=== PATIENT | female | born 1955 | race Caucasian/White ===

== ENCOUNTER 2017-05-04 09:08 | Day surgery (SDC) | payer OTHER ==
[~2017-05-04] VITALS: Ht 165.1 cm; Wt 140.6 kg
--- NOTE | ~2017-05-04 | EGD ---
EGD REPORT [facility] [address] [address] NAME: CATRINA GIBBS : 53 STATUS : REG [facility] PAT#: [id number] AGE: 61 ADM/REG DATE : 05/04/17 MR#: [id number] REPORT SERV DATE: 05/04/17 DICTATED BY: PHILIPPE HAMILTON DATE: 05/04/17 REPORT STATUS : Draft [facility]ANS[facility]IBED [facility]: [facility] DATE: 05/04/17 End[facility] Center Patient Name: Catrina Gibbs Date of : 1955 Attending MD: PHILIPPE HAMILTON MD Procedure Date No Time: 05/04/2017 Procedure: Colonoscopy Indications: Screening for colorectal malignant neoplasm, Last colonoscopy: 2005 Referring MD: GAYLE GUADARRAMA Medicines: See the Anesthesia note for documentation of the administered medications Complications: No immediate complications. Procedure: Pre-Anesthesia Assessment: - ASA Grade Assessment: III - A patient with severe systemic disease. After I obtained informed consent, the scope was passed under direct vision. Throughout the procedure, the patient's blood pressure, pulse, and oxygen saturations were monitored continuously. The [id number] was introduced through the anus and advanced to the cecum, identified by appendiceal orifice and ileocecal valve. The colonoscopy was performed without difficulty. The patient tolerated the procedure well. The quality of the bowel preparation was adequate. Findings: The perianal and digital rectal examinations were normal. Internal hemorrhoids were found during retroflexion and were small. Two sessile polyps were found in the ascending colon. The polyps were 8 mm in size. These polyps were removed with a cold snare. Resection and retrieval were complete. Impression: - Internal hemorrhoids. - Two 8 mm polyps in the ascending colon. Resected and retrieved. Recommendation: - Patient has a contact number available for emergencies. The signs and symptoms of potential delayed complications were discussed with the patient. Return to normal activities tomorrow. Written discharge instructions were provided to the patient. - Regular diet. - Continue present medications. - Repeat colonoscopy for surveillance based on pathology EGD REPORT [address] [address] NAME: CATRINA GIBBS : [birth year] STATUS : REG [facility]#: [id number] AGE: 61 ADM/REG DATE : 05/04/17 MR#: [id number] REPORT SERV DATE: 05/04/17 DICTATED BY: PHILIPPE HAMILTON DATE: 05/04/17 REPORT STATUS : Draft TRANSCRIBED BY: [employer] DATE: 05/04/17 results. - FOR YOUR BIOPSY RESULTS: Please go to [email or web address] and register to receive your results via the portal. Your biopsy results will be posted there in about 7 to 10 days. IF you do not see result in 10 days, call office. Procedure Code(s): --- Professional --- 30655, Colonoscopy, flexible, proximal to splenic flexure; with removal of tumor(s), polyp(s), or other lesion(s) by snare technique Diagnosis Code(s): --- Professional --- K64.8, Other hemorrhoids D12.2, Benign neoplasm of ascending colon Z12.11, Encounter for screening for malignant neoplasm of colon CPT copyright 2013 [employer]. All rights reserved. The codes documented in this report are preliminary and upon medical staff coordinator review may be revised to meet current compliance requirements. Philippe Hamilton MD PHILIPPE HAMILTON MD 05/04/2017 10:15 AM This report has been signed electronically. Number of Addenda: 0 Note Initiated On: 05/04/2017 9:24 AM Scope Withdrawal Time 0 hours 10 minutes 20 seconds [id number] [place] [id number]
--- NOTE | ~2017-05-04 | EGD ---
EGD REPORT [facility] [address] [address] NAME: CATRINA GIBBS : 53 STATUS : [facility] PAT#: [id number] AGE: 61 ADM/REG DATE : 05/04/17 MR#: [id number] REPORT SERV DATE: 05/04/17 DICTATED BY: PHILIPPE HAMILTON DATE: 05/04/17 REPORT STATUS : Draft [facility]ANS[facility]IBED [facility]: [facility] DATE: 05/04/17 Endoscopy Center Patient Name: Catrina Gibbs Date of : 1955 Attending MD: PHILIPPE HAMILTON MD Procedure Date No Time: 05/04/2017 Procedure: Colonoscopy Indications: Screening for colorectal malignant neoplasm, Last colonoscopy: 2005 Referring MD: GAYLE GUADARRAMA Medicines: See the Anesthesia note for documentation of the administered medications Complications: No immediate complications. Procedure: Pre-Anesthesia Assessment: - ASA Grade Assessment: III - A patient with severe systemic disease. After I obtained informed consent, the scope was passed under direct vision. Throughout the procedure, the patient's blood pressure, pulse, and oxygen saturations were monitored continuously. The [id number] was introduced through the anus and advanced to the cecum, identified by appendiceal orifice and ileocecal valve. The colonoscopy was performed without difficulty. The patient tolerated the procedure well. The quality of the bowel preparation was adequate. Findings: The perianal and digital rectal examinations were normal. Internal hemorrhoids were found during retroflexion and were small. Two sessile polyps were found in the ascending colon. The polyps were 8 mm in size. These polyps were removed with a cold snare. Resection and retrieval were complete. Impression: - Internal hemorrhoids. - Two 8 mm polyps in the ascending colon. Resected and retrieved. Recommendation: - Patient has a contact number available for emergencies. The signs and symptoms of potential delayed complications were discussed with the patient. Return to normal activities tomorrow. Written discharge instructions were provided to the patient. - Regular diet. - Continue present medications. - Repeat colonoscopy for surveillance based on pathology EGD REPORT [address] [address] NAME: CATRINA GIBBS : [birth year] STATUS : REG [facility]#: [id number] AGE: 61 ADM/REG DATE : 05/04/17 MR#: [id number] REPORT SERV DATE: 05/04/17 DICTATED BY: PHILIPPE HAMILTON DATE: 05/04/17 REPORT STATUS : Draft TRANSCRIBED BY: [employer] DATE: 05/04/17 results. - FOR YOUR BIOPSY RESULTS: Please go to [email or web address] and register to receive your results via the portal. Your biopsy results will be posted there in about 7 to 10 days. IF you do not see result in 10 days, call office. Procedure Code(s): --- Professional --- 46491, Colonoscopy, flexible, proximal to splenic flexure; with removal of tumor(s), polyp(s), or other lesion(s) by snare technique Diagnosis Code(s): --- Professional --- K64.8, Other hemorrhoids D12.2, Benign neoplasm of ascending colon Z12.11, Encounter for screening for malignant neoplasm of colon CPT copyright 2013 [employer]. All rights reserved. The codes documented in this report are preliminary and upon utility bill collection clerk review may be revised to meet current compliance requirements. Philippe Hamilton MD PHILIPPE HAMILTON MD 05/04/2017 10:15 AM This report has been signed electronically. Number of Addenda: 0 Note Initiated On: 05/04/2017 9:24 AM Scope Withdrawal Time 0 hours 10 minutes 20 seconds [id number] [place] [id number]
--- NOTE | ~2017-05-04 | EGD ---
EGD REPORT [facility] [address] [address] NAME: CATRINA GIBBS : [birth year] STATUS : [facility]#: [id number] AGE: 61 ADM/REG DATE : 05/04/17 MR#: [id number] REPORT SERV DATE: 05/10/17 DICTATED BY: PHILIPPE HAMILTON DATE: 05/10/17 REPORT STATUS : Draft [facility] DATE: 05/10/17 Endoscopy Center Patient Name: Catrina Gibbs Date of : 1955 Attending MD: PHILIPPE HAMILTON MD Procedure Date No Time: 05/04/2017 Procedure: Colonoscopy Indications: Screening for colorectal malignant neoplasm, Last colonoscopy: 2005 Referring MD: GAYLE GUADARRAMA Medicines: See the Anesthesia note for documentation of the administered medications Complications: No immediate complications. Procedure: Pre-Anesthesia Assessment: - ASA Grade Assessment: III - A patient with severe systemic disease. After I obtained informed consent, the scope was passed under direct vision. Throughout the procedure, the patient's blood pressure, pulse, and oxygen saturations were monitored continuously. The [id number] was introduced through the anus and advanced to the cecum, identified by appendiceal orifice and ileocecal valve. The colonoscopy was performed without difficulty. The patient tolerated the procedure well. The quality of the bowel preparation was adequate. Findings: The perianal and digital rectal examinations were normal. Internal hemorrhoids were found during retroflexion and were small. Two sessile polyps were found in the ascending colon. The polyps were 8 mm in size. These polyps were removed with a cold snare. Resection and retrieval were complete. Impression: - Internal hemorrhoids. - Two 8 mm polyps in the ascending colon. Resected and retrieved. Recommendation: - Patient has a contact number available for emergencies. The signs and symptoms of potential delayed complications were discussed with the patient. Return to normal activities tomorrow. Written discharge instructions were provided to the patient. - Regular diet. - Continue present medications. - Repeat colonoscopy for surveillance based on pathology EGD REPORT [address] [address] NAME: CATRINA GIBBS : [birth year] STATUS : [facility]#: [id number] AGE: 61 ADM/REG DATE : 05/04/17 MR#: [id number] REPORT SERV DATE: 05/10/17 DICTATED BY: PHILIPPE HAMILTON DATE: 05/10/17 REPORT STATUS : Draft TRANSCRIBED BY: [employer] DATE: 05/10/17 results. - FOR YOUR BIOPSY RESULTS: Please go to [email or web address] and register to receive your results via the portal. Your biopsy results will be posted there in about 7 to 10 days. IF you do not see result in 10 days, call office. Procedure Code(s): --- Professional --- 69021, Colonoscopy, flexible, proximal to splenic flexure; with removal of tumor(s), polyp(s), or other lesion(s) by snare technique Diagnosis Code(s): --- Professional --- K64.8, Other hemorrhoids D12.2, Benign neoplasm of ascending colon Z12.11, Encounter for screening for malignant neoplasm of colon CPT copyright 2013 [employer]. All rights reserved. The codes documented in this report are preliminary and upon nuclear physician review may be revised to meet current compliance requirements. Philippe Hamilton MD PHILIPPE HAMILTON MD 05/04/2017 10:15 AM This report has been signed electronically. Number of Addenda: 0 Note Initiated On: 05/04/2017 9:24 AM Scope Withdrawal Time 0 hours 10 minutes 20 seconds [id number] [place] [id number]
--- NOTE | ~2017-05-04 | EGD ---
EGD REPORT [facility] [address] [address] NAME: CATRINA GIBBS : 53 STATUS : [facility]#: [id number] AGE: 61 ADM/REG DATE : 05/04/17 MR#: [id number] REPORT SERV DATE: 05/11/17 DICTATED BY: PHILIPPE HAMILTON DATE: 05/11/17 REPORT STATUS : Draft [facility] DATE: 05/11/17 Endoscopy Center Patient Name: Catirna Gibbs Date of : 1955 Attending MD: PHILIPPE HAMILTON MD Procedure Date No Time: 05/04/2017 Procedure: Colonoscopy Indications: Screening for colorectal malignant neoplasm, Last colonoscopy: 2005 Referring MD: GAYLE GUADARRAMA Medicines: See the Anesthesia note for documentation of the administered medications Complications: No immediate complications. Procedure: Pre-Anesthesia Assessment: - ASA Grade Assessment: III - A patient with severe systemic disease. After I obtained informed consent, the scope was passed under direct vision. Throughout the procedure, the patient's blood pressure, pulse, and oxygen saturations were monitored continuously. The [id number] was introduced through the anus and advanced to the cecum, identified by appendiceal orifice and ileocecal valve. The colonoscopy was performed without difficulty. The patient tolerated the procedure well. The quality of the bowel preparation was adequate. Findings: The perianal and digital rectal examinations were normal. Internal hemorrhoids were found during retroflexion and were small. Two sessile polyps were found in the ascending colon. The polyps were 8 mm in size. These polyps were removed with a cold snare. Resection and retrieval were complete. Impression: - Internal hemorrhoids. - Two 8 mm polyps in the ascending colon. Resected and retrieved. Recommendation: - Patient has a contact number available for emergencies. The signs and symptoms of potential delayed complications were discussed with the patient. Return to normal activities tomorrow. Written discharge instructions were provided to the patient. - Regular diet. - Continue present medications. - Repeat colonoscopy for surveillance based on pathology EGD REPORT [address] [address] NAME: CATRINA GIBBS : [birth year] STATUS : [facility]#: [id number] AGE: 61 ADM/REG DATE : 05/04/17 MR#: [id number] REPORT SERV DATE: 05/11/17 DICTATED BY: PHILIPPE HAMILTON DATE: 05/11/17 REPORT STATUS : Draft TRANSCRIBED BY: [employer] DATE: 05/11/17 results. - FOR YOUR BIOPSY RESULTS: Please go to [email or web address] and register to receive your results via the portal. Your biopsy results will be posted there in about 7 to 10 days. IF you do not see result in 10 days, call office. Procedure Code(s): --- Professional --- 69733, Colonoscopy, flexible, proximal to splenic flexure; with removal of tumor(s), polyp(s), or other lesion(s) by snare technique Diagnosis Code(s): --- Professional --- K64.8, Other hemorrhoids D12.2, Benign neoplasm of ascending colon Z12.11, Encounter for screening for malignant neoplasm of colon CPT copyright 2013 [employer]. All rights reserved. The codes documented in this report are preliminary and upon production stage manager review may be revised to meet current compliance requirements. Philippe Hamilton MD PHILIPPE HAMILTON MD 05/04/2017 10:15 AM This report has been signed electronically. Number of Addenda: 1 Note Initiated On: 05/04/2017 9:24 AM Scope Withdrawal Time 0 hours 10 minutes 20 seconds Addendum Number: 1 Addendum Date: 05/11/2017 8:51 AM Note: Rectal polyp removed by cold bx Philippe Hamilton MD PHILIPPE HAMILTON MD 05/11/2017 8:51 AM This report has been signed electronically. EGD REPORT [place] [id number] [place] [place] [address] NAME: CATRINA GIBBS : [birth year] STATUS : [facility] PAT#: [id number] AGE: 61 ADM/REG DATE : 05/04/17 MR#: [id number] REPORT SERV DATE: 05/11/17 DICTATED BY: PHILIPPE HAMILTON DATE: 05/11/17 REPORT STATUS : Draft [facility]: [facility] DATE: [facility]/11/17 [facility] [place] [id number]
[~2017-05-04 09:08] MED LIST: ACET500CAP PO; ALLEGRA180 PO; ALLERGY SHOTS; AMARYL2 PO; HYZAAR 100/25 T1 TAB PO; LEVOTHYROXIN125 MCG PO; LOVENOX40 SC; MAXIMUM D3 PO; NORV10 PO; OXYCON10 PO; PCET PO; PRILOSEC40 MG PO; PROTONIX PO; ZOCOR20 PO; ZOFRAN4
== END 2017-05-04 23:59 | disposition home or self-care (01) ==
LOC: DMU 09:08
PROVIDERS: Internal Medicine Gastroenterology
PROC: 0DBK8ZX Excision of Ascending Colon, Via Natural or Artificial Opening Endoscopic, Diagnostic (ICD-10-PCS; principal; 2017-05-04 10:30)
DX: Z12.11 Encounter for screening for malignant neoplasm of colon (principal); K63.5 Polyp of colon; K62.1 Rectal polyp; K64.8 Other hemorrhoids; I10 Essential (primary) hypertension; E78.5 Hyperlipidemia, unspecified; E66.01 Morbid (severe) obesity due to excess calories; G47.33 Obstructive sleep apnea (adult) (pediatric); E11.9 Type 2 diabetes mellitus without complications; E03.9 Hypothyroidism, unspecified; R01.1 Cardiac murmur, unspecified; Z68.43 Body mass index [BMI] 50.0-59.9, adult; Z79.899 Other long term (current) drug therapy; Z98.51 Tubal ligation status; Z96.641 Presence of right artificial hip joint; Z88.0 Allergy status to penicillin; Z88.8 Allergy status to other drugs, medicaments and biological substances; Z90.89 Acquired absence of other organs; Z98.890 Other specified postprocedural states
CPT/HCPCS: 82962; 88305